=== PATIENT | male | born 1925 | race Caucasian/White ===

== ENCOUNTER → 2016-06-13 | Outpatient (CLI) | payer OTHER ==
[~2016-06-13] MED LIST: ANALGESIC325 MG PO; CENTRUM SILVER1 EAC1 PO; CIALIS20 MG PO; DEPO-TESTO200 MG/1 M IM; FISHOIL; FLOMAX PO; NIASPAN PO; ORADENT 0.1% DEN5 G1 TOP; PRAVACHOL40 MG PO; TYLENOL P.M. E1 EAC3 PO; VITAMIN C + RO500 MG PO
== END ==
LOC: RAD 09:09
DX: R05 Cough (principal)